=== PATIENT | female | born 1945 | race Hispanic/Latino ===

== ENCOUNTER → 2018-01-08 | Outpatient (CLI) | payer OTHER | END | disposition home or self-care (01) | LOC: OIH 10:27 | PROVIDERS: ATTEND Family Medicine | DX: M17.11 Unilateral primary osteoarthritis, right knee (principal) | CPT/HCPCS: 73562 ==

== ENCOUNTER → 2018-01-29 | Outpatient (CLI) | payer OTHER | END | disposition home or self-care (01) | LOC: RAH 08:08 | PROVIDERS: ATTEND Family Medicine | DX: R92.2 Inconclusive mammogram (principal) | CPT/HCPCS: 77066 ==

== ENCOUNTER → 2018-09-27 | Outpatient (CLI) | payer OTHER | END | disposition home or self-care (01) | LOC: RAH 12:08 | PROVIDERS: ATTEND Family Medicine | DX: K42.9 Umbilical hernia without obstruction or gangrene (principal) | CPT/HCPCS: 76705 ==

== ENCOUNTER 2019-03-16 21:29 | Emergency (ER) | payer OTHER ==
[2019-03-16] MEDS ORDERED: DIAZEPAM 5 MG TABLET ONE (22:18)
[2019-03-16 22:23] LABS: APPEARANCE,URINE Clear (CLEAR); BILIRUBIN,URINE Negative (NEGATIVE); COLOR,URINE Yellow (YELLOW); GLUCOSE, URINE (UA) Negative (NEGATIVE); KETONES,URINE Negative (NEGATIVE); LEUKOCYTE ESTERASE ,URINE Negative (NEGATIVE); NITRATE,URINE Negative (NEGATIVE); OCCULT BLOOD,URINE Negative (NEGATIVE); PROTEIN,URINE POS 2+ mg/dL (NEGATIVE)
[2019-03-16 22:27] LABS: BASOPHILS % (AUTO) 0.8 % (0.0-5.0); EOSINOPHILS % (AUTO) 0.8 % (0.0-8.0); HEMATOCRIT 34.4 % (36-48); MEAN CORPUSCULAR HEMOGLOBIN 30.8 pg (27.0-33.0); MEAN CORPUSCULAR HGB CONC 33.5 g/dL (32.0-36.0); MEAN CORPUSCULAR VOLUME 91.9 fL (79-99); MONOCYTES % (AUTO) 7.4 % (3.0-13.0); PLATELET COUNT (AUTO) 192 K/uL (130-400); RED BLOOD CELL COUNT(AUTO) 3.74 MIL/uL (4.00-5.50); RED CELL DISTRIBUTION WIDTH 13.4 % (11.0-15.5); WHITE BLOOD COUNT (AUTO) 6.9 K/uL (4.8-10.8)
[2019-03-16 22:29] LABS: CARBON DIOXIDE 29 mmol/L (21-32); CHLORIDE 101 mmol/L (101-111); CREATININE 1.3 mg/dL (0.5-1.5); GLOMERULAR FILTR. RATE CALC 42 mL/min (>60); GLUCOSE,RANDOM 207 mg/dL (70-105); POTASSIUM 4.8 mmol/L (3.5-5.1); SODIUM SERUM 137 mmol/L (136-145); UREA NITROGEN, BLOOD 34 mg/dL (7-18)
[2019-03-16 22:33] LABS: ALANINE AMINOTRANSFERASE 26 U/L (12-78); ASPARTATE AMINOTRANSFERASE 20 U/L (10-37); BILIRUBIN,DIRECT < 0.1 mg/dL (0.0-0.3); BILIRUBIN,TOTAL 0.2 mg/dL (0.2-1.0); CREATINE KINASE, TOTAL 47 U/L (21-232); LIPASE 151 U/L (114-286); TOTAL PROTEIN, SERUM 7.2 g/dL (6.0-8.3)
[2019-03-16 23:15] LABS: B-TYPE NATRIURETIC PEPTIDE 20 pg/mL (0-100)
== END 2019-03-17 00:20 | disposition home or self-care (01) ==
LOC: EDH 21:29
DX: R51 Headache (principal); I10 Essential (primary) hypertension; E11.9 Type 2 diabetes mellitus without complications; E78.5 Hyperlipidemia, unspecified; Z88.6 Allergy status to analgesic agent
CPT/HCPCS: 36415; 70450; 80048; 80076; 81003; 82550; 83690; 83880; 84484; 85025; 93005

== ENCOUNTER 2019-06-08 14:34 | Emergency (ER) | payer OTHER | END 2019-06-08 15:24 | disposition home or self-care (01) | LOC: EDH 14:34 | DX: S81.802A Unspecified open wound, left lower leg, initial encounter (principal); E11.9 Type 2 diabetes mellitus without complications; E78.5 Hyperlipidemia, unspecified; I10 Essential (primary) hypertension; Z88.6 Allergy status to analgesic agent; Z98.890 Other specified postprocedural states; Z90.49 Acquired absence of other specified parts of digestive tract; W18.39XA Other fall on same level, initial encounter; Y93.89 Activity, other specified; Y92.89 Other specified places as the place of occurrence of the external cause; Y99.8 Other external cause status ==

== ENCOUNTER 2019-08-04 00:18 | Emergency (ER) | payer OTHER ==
[2019-08-04 00:46] LABS: HEMATOCRIT 34.4 % (36-48); LYMPHOCYTES % (AUTO) 14.8 % (21.0-51.0); MEAN CORPUSCULAR HEMOGLOBIN 30.6 pg (27.0-33.0); MEAN CORPUSCULAR HGB CONC 33.7 g/dL (32.0-36.0); MEAN CORPUSCULAR VOLUME 90.9 fL (79-99); MONOCYTES % (AUTO) 7.1 % (3.0-13.0); NEUTROPHILS % (AUTO) 76.1 % (40.0-77.0); PLATELET COUNT (AUTO) 201 K/uL (130-400); RED BLOOD CELL COUNT(AUTO) 3.78 MIL/uL (4.00-5.50); RED CELL DISTRIBUTION WIDTH 12.8 % (11.0-15.5); WHITE BLOOD COUNT (AUTO) 11.4 K/uL (4.8-10.8)
[2019-08-04 00:51] LABS: CREATININE 1.1 mg/dL (0.5-1.5); POTASSIUM 4.1 mmol/L (3.5-5.1)
[2019-08-04] MEDS ORDERED: ORPHENADRINE CITRATE 30 MG/ML ML ONE (00:52)
[2019-08-04] MEDS ORDERED: KETOROLAC TROMETHAMINE 15MG/ML ONE (00:52)
[2019-08-04 00:56] LABS: ALBUMIN 3.2 g/dL (3.5-5.0); BILIRUBIN,TOTAL 0.2 mg/dL (0.2-1.0); INR 0.92 (0.85-1.15); PARTIAL THROMBOPLASTIN TIME 25.5 SEC (26.3-35.5); PROTHROMBIN TIME 9.7 SEC (9.6-11.6); TOTAL PROTEIN, SERUM 7.6 g/dL (6.0-8.3)
[2019-08-04] MEDS ORDERED: LIDOCAINE 5% TOPICAL PATCH TP ONE (01:35)
== END 2019-08-04 01:51 | disposition home or self-care (01) ==
LOC: EDH 00:18
DX: R07.89 Other chest pain (principal); M62.838 Other muscle spasm; E11.9 Type 2 diabetes mellitus without complications; E78.5 Hyperlipidemia, unspecified; I10 Essential (primary) hypertension; Z88.6 Allergy status to analgesic agent; Z98.890 Other specified postprocedural states; Z90.49 Acquired absence of other specified parts of digestive tract
CPT/HCPCS: 36415; 71045; 80053; 82550; 84484; 85025; 85610; 85730; 93005; 96374; 96375; 99285; J1885; J2360

== ENCOUNTER 2021-01-26 22:13 | Emergency (ER) | payer OTHER ==
[2021-01-26 23:07] LABS: BASOPHILS % (AUTO) 0.8 % (0.0-5.0); EOSINOPHILS % (AUTO) 0.5 % (0.0-8.0); HEMATOCRIT 36.9 % (36-48); LYMPHOCYTES % (AUTO) 16.8 % (21.0-51.0); MEAN CORPUSCULAR HGB CONC 32.5 g/dL (32.0-36.0); MEAN CORPUSCULAR VOLUME 89.1 fL (79-99); MONOCYTES % (AUTO) 5.9 % (3.0-13.0); NEUTROPHILS % (AUTO) 75.3 % (40.0-77.0); PLATELET COUNT (AUTO) 202 K/uL (130-400); RED BLOOD CELL COUNT(AUTO) 4.14 MIL/uL (4.00-5.50); RED CELL DISTRIBUTION WIDTH 13.2 % (11.0-15.5); WHITE BLOOD COUNT (AUTO) 7.4 K/uL (4.8-10.8)
[2021-01-26 23:10] LABS: CREATININE 1.6 mg/dL (0.5-1.5); POTASSIUM 4.5 mmol/L (3.5-5.1)
[2021-01-26] MEDS ORDERED: METOCLOPRAMIDE 10 MG/2 ML VIAL ONE (23:14)
[2021-01-26] MEDS ORDERED: ACETAMINOPHEN EXTRA STRENGTH 500 MG TABLET ONE (23:14)
[2021-01-26] MEDS ORDERED: DiphenhydrAMINE HCL 50 MG/ML VIAL ONE (23:14)
[2021-01-26 23:15] LABS: ALBUMIN 3.7 g/dL (3.5-5.0); BILIRUBIN,TOTAL 0.4 mg/dL (0.2-1.0); TOTAL PROTEIN, SERUM 8.5 g/dL (6.0-8.3)
[2021-01-26] MEDS ORDERED: SODIUM CHLORIDE 0.9% 500ML 500 ML IV ONE (23:15)
[2021-01-26] MEDS ORDERED: ONDANSETRON HCL 4 MG/2 ML VIAL ONE (23:28)
[2021-01-27] MEDS ORDERED: SODIUM CHLORIDE 0.9% 1000ML 1,000 ML IV ONE (00:40)
[2021-01-27 01:17] LABS: APPEARANCE,URINE Clear (CLEAR); BILIRUBIN,URINE Negative (NEGATIVE); COLOR,URINE Yellow (YELLOW); GLUCOSE, URINE (UA) 250 mg/dL (NEGATIVE); KETONES,URINE Negative (NEGATIVE); LEUKOCYTE ESTERASE ,URINE Trace (NEGATIVE); NITRATE,URINE Negative (NEGATIVE); OCCULT BLOOD,URINE Negative (NEGATIVE); PROTEIN,URINE POS 2+ mg/dL (NEGATIVE); UROBILINOGEN,URINE 0.2 mg/dL (0.2-1.0)
[2021-01-27 01:26] LABS: BACTERIA,URINE Many /HPF (None Seen); RBC,URINE 0-1 /HPF (0-1)
[2021-01-27] MEDS ORDERED: CEFTRIAXONE SODIUM 1 GM ONE (01:51)
== END 2021-01-27 02:55 | disposition home or self-care (01) ==
LOC: EDH 22:13
DX: N39.0 Urinary tract infection, site not specified (principal); E86.0 Dehydration; L73.9 Follicular disorder, unspecified; R11.10 Vomiting, unspecified; I10 Essential (primary) hypertension; E11.9 Type 2 diabetes mellitus without complications; E78.5 Hyperlipidemia, unspecified; Z88.6 Allergy status to analgesic agent; Z90.49 Acquired absence of other specified parts of digestive tract; Z98.890 Other specified postprocedural states
CPT/HCPCS: 36415; 70450; 71045; 80053; 81001; 83880; 84484; 85025; 87077; 87088; 87186; 93005; 96361; 96365; 96375; 99285; J0696; J1200; J2405; J2765; J7030; J7040

== ENCOUNTER 2023-07-10 00:33 | Inpatient (IN) | payer OTHER ==
[~2023-07-10] VITALS: Ht 152.4 cm; Wt 76.8 kg
[2023-07-10] VITALS (26 sets, daily range): BP systolic 114–148; BP diastolic 52–80; PULSE 82–99; RESP 12–23; O2SAT 93–99
[~2023-07-10 00:33] MED LIST: AEC81 PO; CLOP-31 PO; ESCI-8 PO; FERR325T29 PO; FOLI1TAB85 PO; LOSA100T59 PO; METO100T14 PO; MUPI22O TP; ROSU40TA21 PO; SULF1TAB42 PO; TRAM50TA4 PO
[2023-07-10 01:26] LABS: SARS-CoV-2, RNA, NAAT NEGATIVE SARS CoV-2 (NEGATIVE)
[2023-07-10 01:32] LABS: INFLUENZA TYPE A Negative For Type A (NEGATIVE); INFLUENZA TYPE B Negative For Type B (NEGATIVE)
[2023-07-10 02:03] LABS: BASOPHILS # (AUTO) 0.05 K/uL (0.00-0.20); BASOPHILS % (AUTO) 0.6 % (0.0-5.0); EOSINOPHILS # (AUTO) 0.13 K/uL (0.00-0.70); EOSINOPHILS % (AUTO) 1.6 % (0.0-8.0); HEMATOCRIT 35.1 % (36-48); IMMATURE GRANULOCYTE ABSOLUTE 0.03 K/uL (0-1); LYMPHOCYTES # (AUTO) 1.2 K/uL (1.0-4.8); LYMPHOCYTES % (AUTO) 15.3 % (21.0-51.0); MEAN CORPUSCULAR VOLUME 90.7 fL (79-99); MONOCYTES # (AUTO) 0.7 K/uL (0.1-1.0); MONOCYTES % (AUTO) 8.7 % (3.0-13.0); NEUTROPHILS # (AUTO) 5.8 K/uL (1.8-7.7); NEUTROPHILS % (AUTO) 73.4 % (40.0-77.0); PLATELET COUNT (AUTO) 161 K/uL (130-400); RED BLOOD CELL COUNT(AUTO) 3.87 MIL/uL (4.00-5.50); RED CELL DISTRIBUTION WIDTH 13.4 % (11.0-15.5); WHITE BLOOD COUNT (AUTO) 7.9 K/uL (4.8-10.8)
[2023-07-10 02:26] LABS: ALBUMIN 2.9 g/dL (3.5-5.0); BILIRUBIN,TOTAL 0.5 mg/dL (0.2-1.0); CREATININE 1.8 mg/dL (0.5-1.5); POTASSIUM 4.5 mmol/L (3.5-5.1); TOTAL PROTEIN, SERUM 8.1 g/dL (6.0-8.3)
[2023-07-10] MEDS ORDERED: IPRATROPIUM/ALBUTEROL SULFATE 3 ML SOLUTION IH ONE ×2 (02:30→03:30)
[2023-07-10] MEDS ORDERED: 0.9%NACL 1000ML 1,000 ML IV ONE (03:00)
[2023-07-10] MEDS ORDERED: INSULIN HUMULIN R 100 UNIT/ML 3ML IV ONE (03:00)
[2023-07-10] MEDS ORDERED: IPRATROPIUM/ALBUTEROL SULFATE 3 ML SOLUTION IH STA (03:29)
[2023-07-10] MEDS ORDERED: ACETAMINOPHEN 650 MG/20.3 ML UDCUP PEG STA (03:29)
[2023-07-10] MEDS ORDERED: AZITHROMYCIN 500MG+NS 250ML 250 ML IVPB SCH ×2 (05:00→05:30)
[2023-07-10] MEDS ORDERED: CEFTRIAXONE 1G VIAL IVPB ONE (05:00)
[2023-07-10] MEDS: CLINDAMYCIN IVPB 900MG/50ML 50 ML IV SCH ×3 (05:08→20:46)
[2023-07-10] MEDS ORDERED: CEFTRIAXONE 1G VIAL IVPB SCH (05:30)
[2023-07-10] MEDS ORDERED: ONDANSETRON 4MG INJ IV PRN (05:30)
[2023-07-10] MEDS ORDERED: DEXTROSE 50%-WATER 50 ML DISP.SYRIN IV PRN ×2 (06:00→09:30)
[2023-07-10] MEDS ORDERED: GLUCAGON 1MG KIT 1 MG ML IM PRN ×2 (06:00→09:30)
[2023-07-10] MEDS ORDERED: POTASSIUM CHLORIDE 20MEQ/100ML 100 ML IV PRN (06:00)
[2023-07-10] MEDS: IPRATROPIUM/ALBUTEROL SULFATE 3 ML SOLUTION IH SCH ×5 (06:57→22:18)
[2023-07-10] MEDS: INSULIN HUMULIN R 100 UNIT/ML 3ML SQ SCH ×2 (07:25→11:30)
[2023-07-10 08:11] LABS: INR 0.94 (0.85-1.15); PROTHROMBIN TIME 10.9 SEC (9.6-11.6)
[2023-07-10 08:22] LABS: HEMOGLOBIN A1C 11.2 % (4.0-6.0)
[2023-07-10 08:34] LABS: ALBUMIN 2.3 g/dL (3.5-5.0); BILIRUBIN,TOTAL 0.4 mg/dL (0.2-1.0); CREATININE 1.8 mg/dL (0.5-1.5); THYROID STIMULATING HORMONE 1.85 uIU/mL (0.36-3.74); TOTAL PROTEIN, SERUM 6.9 g/dL (6.0-8.3)
[2023-07-10] MEDS: AZITHROMYCIN 500MG+NS 250ML 250 ML IVPB SCH (09:18)
[2023-07-10] MEDS: FAMOTIDINE 20MG VIAL IV SCH (09:18)
[2023-07-10] MEDS ORDERED: INSULIN REGULAR, HUMAN 3ML 100 UNIT in 0.9%NACL 100ML 99 ML IV STA ×2 (10:08)
[2023-07-10] MEDS: HEPARIN 5,000 UNIT VIAL SQ SCH ×2 (11:44→17:19)
[2023-07-10] MEDS: 0.9%NACL 1000ML 1,000 ML IV SCH ×2 (14:48→23:19)
[2023-07-10 16:14] LABS: CREATININE 1.9 mg/dL (0.5-1.5)
[2023-07-10 21:20] LABS: CREATININE 1.4 mg/dL (0.5-1.5); POTASSIUM 3.7 mmol/L (3.5-5.1)
[2023-07-11] VITALS (22 sets, daily range): BP systolic 116–146; BP diastolic 51–70; PULSE 81–98; RESP 14–21; O2SAT 94–100
[2023-07-11] MEDS: HEPARIN 5,000 UNIT VIAL SQ SCH ×3 (01:37→17:14)
[2023-07-11] MEDS: IPRATROPIUM/ALBUTEROL SULFATE 3 ML SOLUTION IH SCH ×6 (01:52→22:33)
[2023-07-11 04:14] LABS: BASOPHILS # (AUTO) 0.03 K/uL (0.00-0.20); BASOPHILS % (AUTO) 0.6 % (0.0-5.0); EOSINOPHILS # (AUTO) 0.13 K/uL (0.00-0.70); EOSINOPHILS % (AUTO) 2.8 % (0.0-8.0); IMMATURE GRANULOCYTE ABSOLUTE 0.03 K/uL (0-1); LYMPHOCYTES # (AUTO) 1.1 K/uL (1.0-4.8); LYMPHOCYTES % (AUTO) 24.1 % (21.0-51.0); MEAN CORPUSCULAR HEMOGLOBIN 29.9 pg (27.0-33.0); MEAN CORPUSCULAR HGB CONC 32.1 g/dL (32.0-36.0); MEAN CORPUSCULAR VOLUME 93.2 fL (79-99); MONOCYTES # (AUTO) 0.4 K/uL (0.1-1.0); MONOCYTES % (AUTO) 8.7 % (3.0-13.0); NEUTROPHILS % (AUTO) 63.2 % (40.0-77.0); PLATELET COUNT (AUTO) 145 K/uL (130-400); RED BLOOD CELL COUNT(AUTO) 3.11 MIL/uL (4.00-5.50); RED CELL DISTRIBUTION WIDTH 13.5 % (11.0-15.5); WHITE BLOOD COUNT (AUTO) 4.7 K/uL (4.8-10.8)
[2023-07-11 04:31] LABS: ALBUMIN 2.3 g/dL (3.5-5.0); BILIRUBIN,TOTAL 0.2 mg/dL (0.2-1.0); CREATININE 1.4 mg/dL (0.5-1.5); MAGNESIUM 1.5 mg/dL (1.80-2.40); POTASSIUM 3.4 mmol/L (3.5-5.1); TOTAL PROTEIN, SERUM 6.9 g/dL (6.0-8.3)
[2023-07-11 04:43] LABS: ABG BASE EXCESS -1.8 mmol/L (-2.0-3.0); ABG OXYGEN SATURATION 88.9 % (95.0-99.0); ABG PCO2 45 mmHg (32-45); ABG PH 7.348 (7.35-7.450); PO2, ARTERIAL BG 58.3 mmHg (83.0-108.0); VENT MODE, BG ROOM AIR (ROOM AIR)
[2023-07-11] MEDS: CLINDAMYCIN IVPB 900MG/50ML 50 ML IV SCH (05:00)
[2023-07-11] MEDS ORDERED: CEFTRIAXONE 1G VIAL IVPB SCH (05:30)
[2023-07-11] MEDS: 0.9%NACL 1000ML 1,000 ML IV SCH ×2 (06:23→19:58)
[2023-07-11] MEDS: MAGNESIUM 2GM PREMIX 50ML 50 ML IV PRN (08:08)
[2023-07-11] MEDS: AZITHROMYCIN 500MG+NS 250ML 250 ML IVPB SCH (08:08)
[2023-07-11] MEDS: FAMOTIDINE 20MG VIAL IV SCH (08:08)
[2023-07-11] MEDS ORDERED: KCL 20 MEQ ERTAB PO PRN (08:30)
[2023-07-11] MEDS ORDERED: GLUCAGON 1MG KIT 1 MG ML IM PRN (08:30)
[2023-07-11] MEDS ORDERED: POTASSIUM CHLORIDE 20MEQ/100ML 100 ML IV PRN (08:30)
[2023-07-11] MEDS ORDERED: TRAMADOL HCL 50 MG TABLET PO SCH (08:30)
[2023-07-11] MEDS ORDERED: INSULIN NPH 100 UNIT/ML 3ML SQ SCH (08:30)
[2023-07-11] MEDS ORDERED: DEXTROSE 50%-WATER 50 ML DISP.SYRIN IV PRN (08:30)
[2023-07-11] MEDS: METOPROLOL TARTRATE 50 MG TAB PO SCH ×2 (08:41→21:42)
[2023-07-11] MEDS: CEFTRIAXONE 2GM VIAL IVPB SCH (08:41)
[2023-07-11] MEDS: POTASSIUM CHLORIDE 10% ELIXIR 20 MEQ/15 ML UDCUP PO PRN (08:41)
[2023-07-11] MEDS: CLOPIDOGREL 75MG TAB PO SCH (08:41)
[2023-07-11] MEDS: LOSARTAN 100 MG TABLET PO SCH (08:41)
[2023-07-11] MEDS: ASPIRIN 81 MG EC TAB PO SCH (08:41)
[2023-07-11] MEDS: FAMOTIDINE 20MG TAB PO SCH (08:41)
[2023-07-11] MEDS ORDERED: POLYETHYLENE GLYCOL 3350 17 GM POWD.PACK ONE (08:57)
[2023-07-11] MEDS: Rosuvastatin Calcium 40 MG PO SCH (09:00)
[2023-07-11] MEDS ORDERED: NON-FORMULARY MEDICATION 1 EACH (Vit B Cmplx 3/FA/Vit C/Biotin (Rena-Vite Rx Tablet) 1 EAC PO SCH (09:00)
[2023-07-11] MEDS ORDERED: DOCUSATE NA 100MG/10ML UDCUP PO SCH (09:00)
[2023-07-11] MEDS: Escitalopram Oxalate 20 MG PO SCH (09:00)
[2023-07-11] MEDS ORDERED: POLYETHYLENE GLYCOL 3350 17 GM POWD.PACK PO SCH (09:00)
[2023-07-11] MEDS ORDERED: FERROUS SULFATE PO SCH (09:00)
[2023-07-11] MEDS ORDERED: TRAMADOL HCL 50 MG TABLET PO PRN (09:00)
[2023-07-11] MEDS: FERROUS SULFATE 325 MG TABLET.DR PO SCH (09:04)
[2023-07-11] MEDS: Vitamin B Complex/Vit C/Folic Acid PO SCH (09:04)
[2023-07-11] MEDS: POLYETHYLENE GLYCOL 3350 17 GM POWD.PACK PO SCH (09:46)
[2023-07-11] MEDS: DOCUSATE NA 100MG/10ML UDCUP PO SCH ×2 (10:13→18:34)
[2023-07-11] MEDS: INSULIN NPH 100 UNIT/ML 3ML SQ SCH ×2 (10:14→16:30)
[2023-07-11] MEDS ORDERED: INSULIN HUMULIN R 100 UNIT/ML 3ML ONE (11:51)
[2023-07-11] MEDS: INSULIN HUMULIN R 100 UNIT/ML 3ML SQ SCH ×2 (12:00→18:00)
[2023-07-11] MEDS ORDERED: INSULIN HUMULIN R 100 UNIT/ML 3ML SQ SCH (12:00)
[2023-07-11] MEDS: MUPIROCIN OINTMENT 22 GM TUBE TP SCH (12:38)
[2023-07-11] MEDS: METRONIDAZOLE 500 MG TABLET PO SCH (17:09)
[2023-07-11] MEDS: BENZONATATE 100 MG CAPSULE PO PRN (18:34)
[2023-07-12] VITALS (16 sets, daily range): BP systolic 137–157; BP diastolic 58–77; PULSE 71–101; RESP 16–24; O2SAT 95–100
[2023-07-12] MEDS: METRONIDAZOLE 500 MG TABLET PO SCH ×3 (01:00→17:00)
[2023-07-12] MEDS: HEPARIN 5,000 UNIT VIAL SQ SCH ×3 (01:19→17:30)
[2023-07-12] MEDS: IPRATROPIUM/ALBUTEROL SULFATE 3 ML SOLUTION IH SCH ×6 (01:40→21:52)
[2023-07-12] MEDS: INSULIN HUMULIN R 100 UNIT/ML 3ML SQ SCH ×4 (06:00→16:20)
[2023-07-12 06:04] LABS: BASOPHILS # (AUTO) 0.04 K/uL (0.00-0.20); BASOPHILS % (AUTO) 0.7 % (0.0-5.0); EOSINOPHILS # (AUTO) 0.17 K/uL (0.00-0.70); HEMATOCRIT 28.1 % (36-48); IMMATURE GRANULOCYTE ABSOLUTE 0.03 K/uL (0-1); LYMPHOCYTES # (AUTO) 1.3 K/uL (1.0-4.8); LYMPHOCYTES % (AUTO) 22.3 % (21.0-51.0); MEAN CORPUSCULAR HEMOGLOBIN 29.6 pg (27.0-33.0); MEAN CORPUSCULAR HGB CONC 32.4 g/dL (32.0-36.0); MEAN CORPUSCULAR VOLUME 91.5 fL (79-99); MONOCYTES # (AUTO) 0.7 K/uL (0.1-1.0); MONOCYTES % (AUTO) 11.8 % (3.0-13.0); NEUTROPHILS # (AUTO) 3.5 K/uL (1.8-7.7); NEUTROPHILS % (AUTO) 61.7 % (40.0-77.0); PLATELET COUNT (AUTO) 165 K/uL (130-400); RED BLOOD CELL COUNT(AUTO) 3.07 MIL/uL (4.00-5.50); RED CELL DISTRIBUTION WIDTH 13.7 % (11.0-15.5); WHITE BLOOD COUNT (AUTO) 5.7 K/uL (4.8-10.8)
[2023-07-12 06:09] LABS: CREATININE 1.2 mg/dL (0.5-1.5); MAGNESIUM 1.8 mg/dL (1.80-2.40)
[2023-07-12] MEDS: INSULIN NPH 100 UNIT/ML 3ML SQ SCH ×2 (06:41→18:43)
[2023-07-12] MEDS ORDERED: LABETALOL 20MG SYG IV PRN (08:30)
[2023-07-12] MEDS: Rosuvastatin Calcium 40 MG PO SCH (09:00)
[2023-07-12] MEDS: Escitalopram Oxalate 20 MG PO SCH (09:00)
[2023-07-12] MEDS: AZITHROMYCIN 500MG+NS 250ML 250 ML IVPB SCH (10:42)
[2023-07-12] MEDS: CEFTRIAXONE 2GM VIAL IVPB SCH (10:42)
[2023-07-12] MEDS: Vitamin B Complex/Vit C/Folic Acid PO SCH (15:44)
[2023-07-12] MEDS: CLOPIDOGREL 75MG TAB PO SCH (15:44)
[2023-07-12] MEDS: METOPROLOL TARTRATE 50 MG TAB PO SCH ×2 (15:44→20:15)
[2023-07-12] MEDS: DOCUSATE NA 100MG/10ML UDCUP PO SCH ×2 (15:45→20:15)
[2023-07-12] MEDS: FERROUS SULFATE 325 MG TABLET.DR PO SCH (15:45)
[2023-07-12] MEDS: LOSARTAN 100 MG TABLET PO SCH (15:45)
[2023-07-12] MEDS: POLYETHYLENE GLYCOL 3350 17 GM POWD.PACK PO SCH (15:45)
[2023-07-12] MEDS: FAMOTIDINE 20MG TAB PO SCH (15:45)
[2023-07-12] MEDS: ASPIRIN 81 MG EC TAB PO SCH (15:45)
[2023-07-12] MEDS: GUAIFENESIN-DM 200/20 MG 10 ML PO PRN (20:15)
[2023-07-12] MEDS: BALSAM PERU/CASTOR OIL 60 GM TUBE TP SCH (20:25)
[2023-07-12 22:08] LABS: MYCOPLASMA AB IGM <770 U/mL (0-769)
[2023-07-12] MEDS: 0.9%NACL 1000ML 1,000 ML IV SCH (22:38)
[2023-07-13] VITALS (16 sets, daily range): BP systolic 146–161; BP diastolic 71–82; PULSE 75–103; RESP 17–22; O2SAT 93–98
[2023-07-13] MEDS: INSULIN HUMULIN R 100 UNIT/ML 3ML SQ SCH ×5 (00:05→23:57)
[2023-07-13] MEDS: METRONIDAZOLE 500 MG TABLET PO SCH ×3 (00:32→17:25)
[2023-07-13] MEDS: HEPARIN 5,000 UNIT VIAL SQ SCH ×3 (00:34→17:31)
[2023-07-13] MEDS: IPRATROPIUM/ALBUTEROL SULFATE 3 ML SOLUTION IH SCH ×6 (01:05→20:59)
[2023-07-13] MEDS: GUAIFENESIN-DM 200/20 MG 10 ML PO PRN (01:35)
[2023-07-13] MEDS: INSULIN NPH 100 UNIT/ML 3ML SQ SCH ×2 (06:42→17:27)
[2023-07-13] MEDS: ACETAMINOPHEN 325 MG TAB PO PRN (07:50)
[2023-07-13] MEDS: Escitalopram Oxalate 20 MG PO SCH (09:00)
[2023-07-13] MEDS: Rosuvastatin Calcium 40 MG PO SCH (09:00)
[2023-07-13] MEDS: DOCUSATE NA 100MG/10ML UDCUP PO SCH ×2 (10:27→21:00)
[2023-07-13] MEDS: AZITHROMYCIN 500MG+NS 250ML 250 ML IVPB SCH (10:27)
[2023-07-13] MEDS: POLYETHYLENE GLYCOL 3350 17 GM POWD.PACK PO SCH (10:27)
[2023-07-13] MEDS: LOSARTAN 100 MG TABLET PO SCH (10:28)
[2023-07-13] MEDS: FERROUS SULFATE 325 MG TABLET.DR PO SCH (10:28)
[2023-07-13] MEDS: CLOPIDOGREL 75MG TAB PO SCH (10:28)
[2023-07-13] MEDS: ASPIRIN 81 MG EC TAB PO SCH (10:28)
[2023-07-13] MEDS: FAMOTIDINE 20MG TAB PO SCH (10:28)
[2023-07-13] MEDS: METOPROLOL TARTRATE 50 MG TAB PO SCH ×2 (10:28→21:00)
[2023-07-13] MEDS: Vitamin B Complex/Vit C/Folic Acid PO SCH (10:28)
[2023-07-13] MEDS: BALSAM PERU/CASTOR OIL 60 GM TUBE TP SCH ×2 (10:35→22:18)
[2023-07-13] MEDS: MUPIROCIN OINTMENT 22 GM TUBE TP SCH (10:36)
[2023-07-13] MEDS: CEFTRIAXONE 2GM VIAL IVPB SCH (10:42)
[2023-07-13] MEDS ORDERED: DIATR MEGLU/DIATRIZOATE SODIUM 30 ML BOTTLE ONE ×2 (11:29→18:43)
[2023-07-13] MEDS: 0.9%NACL 1000ML 1,000 ML IV SCH (11:58)
[2023-07-13] MEDS ORDERED: IOHEXOL-350 50ML VIAL IV ONE (16:18)
[2023-07-13] MEDS: MAGNESIUM 2GM PREMIX 50ML 50 ML IV PRN (22:17)
[2023-07-14] VITALS (15 sets, daily range): BP systolic 138–162; BP diastolic 63–75; PULSE 77–99; RESP 16–20; O2SAT 92–97
[2023-07-14] MEDS ORDERED: HYDROMORPHONE 0.5 MG SYG (0.5MG/0.5ML) IVP ONE
[2023-07-14] MEDS: HEPARIN 5,000 UNIT VIAL SQ SCH ×3 (00:35→19:42)
[2023-07-14] MEDS: METRONIDAZOLE 500 MG TABLET PO SCH ×3 (00:39→19:42)
[2023-07-14] MEDS: IPRATROPIUM/ALBUTEROL SULFATE 3 ML SOLUTION IH SCH ×6 (01:00→22:51)
[2023-07-14] MEDS: INSULIN HUMULIN R 100 UNIT/ML 3ML SQ SCH ×3 (06:00→18:00)
[2023-07-14] MEDS: INSULIN NPH 100 UNIT/ML 3ML SQ SCH ×2 (07:30→19:40)
[2023-07-14] MEDS: Rosuvastatin Calcium 40 MG PO SCH (09:00)
[2023-07-14] MEDS: Escitalopram Oxalate 20 MG PO SCH (09:00)
[2023-07-14] MEDS: 0.9%NACL 1000ML 1,000 ML IV SCH ×2 (10:10→14:38)
[2023-07-14] MEDS: CEFTRIAXONE 2GM VIAL IVPB SCH (10:10)
[2023-07-14] MEDS: AZITHROMYCIN 500MG+NS 250ML 250 ML IVPB SCH (10:10)
[2023-07-14 10:20] LABS: CREATININE 1.1 mg/dL (0.5-1.5); POTASSIUM 3.9 mmol/L (3.5-5.1)
[2023-07-14] MEDS: Vitamin B Complex/Vit C/Folic Acid PO SCH (10:47)
[2023-07-14] MEDS: FAMOTIDINE 20MG TAB PO SCH (10:48)
[2023-07-14] MEDS: BENZONATATE 100 MG CAPSULE PO PRN (10:48)
[2023-07-14] MEDS: FERROUS SULFATE 325 MG TABLET.DR PO SCH (10:48)
[2023-07-14] MEDS: CLOPIDOGREL 75MG TAB PO SCH (10:48)
[2023-07-14] MEDS: LOSARTAN 100 MG TABLET PO SCH ×2 (10:48→20:28)
[2023-07-14] MEDS: ASPIRIN 81 MG EC TAB PO SCH (10:48)
[2023-07-14] MEDS: METOPROLOL TARTRATE 50 MG TAB PO SCH ×2 (10:48→20:09)
[2023-07-14] MEDS: DOCUSATE NA 100MG/10ML UDCUP PO SCH ×2 (10:49→20:28)
[2023-07-14] MEDS: POLYETHYLENE GLYCOL 3350 17 GM POWD.PACK PO SCH (10:49)
[2023-07-14] MEDS: GUAIFENESIN-DM 200/20 MG 10 ML PO PRN (10:49)
[2023-07-14] MEDS: MUPIROCIN OINTMENT 22 GM TUBE TP SCH (10:50)
[2023-07-14] MEDS: BALSAM PERU/CASTOR OIL 60 GM TUBE TP SCH ×2 (10:50→20:28)
[2023-07-14] MEDS: AMLODIPINE 5 MG TAB PO SCH (10:54)
[2023-07-14] MEDS: ACETAMINOPHEN 325 MG TAB PO PRN ×2 (15:09→20:10)
[2023-07-15] VITALS (14 sets, daily range): BP systolic 142–156; BP diastolic 65–79; PULSE 76–98; RESP 16–18; O2SAT 92–96
[2023-07-15] MEDS: INSULIN HUMULIN R 100 UNIT/ML 3ML SQ SCH ×5 (01:00→23:53)
[2023-07-15] MEDS: HEPARIN 5,000 UNIT VIAL SQ SCH ×3 (01:01→17:28)
[2023-07-15] MEDS: METRONIDAZOLE 500 MG TABLET PO SCH ×3 (01:14→16:41)
[2023-07-15] MEDS: GUAIFENESIN-DM 200/20 MG 10 ML PO PRN ×3 (02:34→19:58)
[2023-07-15] MEDS: 0.9%NACL 1000ML 1,000 ML IV SCH ×2 (02:35→17:29)
[2023-07-15] MEDS: IPRATROPIUM/ALBUTEROL SULFATE 3 ML SOLUTION IH SCH ×6 (02:42→22:34)
[2023-07-15] MEDS: ACETAMINOPHEN 325 MG TAB PO PRN ×3 (02:42→19:59)
[2023-07-15] MEDS: INSULIN NPH 100 UNIT/ML 3ML SQ SCH ×2 (06:04→16:42)
[2023-07-15] MEDS: DOCUSATE NA 100MG/10ML UDCUP PO SCH ×2 (07:50→19:56)
[2023-07-15] MEDS: Escitalopram Oxalate 20 MG PO SCH (07:51)
[2023-07-15] MEDS: Rosuvastatin Calcium 40 MG PO SCH (07:52)
[2023-07-15] MEDS: POLYETHYLENE GLYCOL 3350 17 GM POWD.PACK PO SCH (07:52)
[2023-07-15] MEDS: FERROUS SULFATE 325 MG TABLET.DR PO SCH (09:24)
[2023-07-15] MEDS: AMLODIPINE 5 MG TAB PO SCH (09:24)
[2023-07-15] MEDS: AZITHROMYCIN 500MG+NS 250ML 250 ML IVPB SCH (09:24)
[2023-07-15] MEDS: CEFTRIAXONE 2GM VIAL IVPB SCH (09:24)
[2023-07-15] MEDS: LOSARTAN 100 MG TABLET PO SCH ×2 (09:25→19:56)
[2023-07-15] MEDS: ASPIRIN 81 MG EC TAB PO SCH (09:25)
[2023-07-15] MEDS: Vitamin B Complex/Vit C/Folic Acid PO SCH (09:25)
[2023-07-15] MEDS: CLOPIDOGREL 75MG TAB PO SCH (09:25)
[2023-07-15] MEDS: METOPROLOL TARTRATE 50 MG TAB PO SCH ×2 (09:25→19:55)
[2023-07-15] MEDS: FAMOTIDINE 20MG TAB PO SCH (09:26)
[2023-07-15] MEDS: BALSAM PERU/CASTOR OIL 60 GM TUBE TP SCH ×2 (09:26→19:56)
[2023-07-15] MEDS: MUPIROCIN OINTMENT 22 GM TUBE TP SCH (09:26)
[2023-07-16] VITALS (16 sets, daily range): BP systolic 105–153; BP diastolic 53–71; PULSE 68–96; RESP 14–20; O2SAT 93–95
[2023-07-16] MEDS: METRONIDAZOLE 500 MG TABLET PO SCH ×4 (00:21→23:50)
[2023-07-16] MEDS: HEPARIN 5,000 UNIT VIAL SQ SCH ×4 (00:22→23:52)
[2023-07-16] MEDS: IPRATROPIUM/ALBUTEROL SULFATE 3 ML SOLUTION IH SCH ×6 (01:59→21:48)
[2023-07-16] MEDS: GUAIFENESIN-DM 200/20 MG 10 ML PO PRN ×4 (03:24→23:49)
[2023-07-16] MEDS: INSULIN NPH 100 UNIT/ML 3ML SQ SCH ×2 (06:23→16:30)
[2023-07-16] MEDS: 0.9%NACL 1000ML 1,000 ML IV SCH ×2 (06:24→21:37)
[2023-07-16] MEDS: INSULIN HUMULIN R 100 UNIT/ML 3ML SQ SCH ×4 (06:24→23:48)
[2023-07-16] MEDS: Rosuvastatin Calcium 40 MG PO SCH (09:00)
[2023-07-16] MEDS: POLYETHYLENE GLYCOL 3350 17 GM POWD.PACK PO SCH (09:00)
[2023-07-16] MEDS: Escitalopram Oxalate 20 MG PO SCH (09:00)
[2023-07-16] MEDS: DOCUSATE NA 100MG/10ML UDCUP PO SCH ×2 (09:00→21:37)
[2023-07-16] MEDS: METOPROLOL TARTRATE 50 MG TAB PO SCH ×2 (09:43→21:37)
[2023-07-16] MEDS: CEFTRIAXONE 2GM VIAL IVPB SCH (09:43)
[2023-07-16] MEDS: LOSARTAN 100 MG TABLET PO SCH ×2 (09:44→21:37)
[2023-07-16] MEDS: ASPIRIN 81 MG EC TAB PO SCH (09:44)
[2023-07-16] MEDS: AMLODIPINE 5 MG TAB PO SCH (09:44)
[2023-07-16] MEDS: FAMOTIDINE 20MG TAB PO SCH (09:45)
[2023-07-16] MEDS: CLOPIDOGREL 75MG TAB PO SCH (09:45)
[2023-07-16] MEDS: FERROUS SULFATE 325 MG TABLET.DR PO SCH (09:45)
[2023-07-16] MEDS: Vitamin B Complex/Vit C/Folic Acid PO SCH (09:45)
[2023-07-16] MEDS: BALSAM PERU/CASTOR OIL 60 GM TUBE TP SCH ×2 (09:46→21:37)
[2023-07-16] MEDS: MUPIROCIN OINTMENT 22 GM TUBE TP SCH (09:46)
[2023-07-16] MEDS: AZITHROMYCIN 500MG+NS 250ML 250 ML IVPB SCH (11:15)
[2023-07-16] MEDS: ACETAMINOPHEN 325 MG TAB PO PRN ×2 (12:08→23:50)
[2023-07-16] MEDS ORDERED: BENZ-226 PO (13:31)
[2023-07-16] MEDS ORDERED: AMLO5TAB4 PO (13:31)
[2023-07-16] MEDS ORDERED: BENZ-39 PO (13:36)
[2023-07-16] MEDS ORDERED: LEVO750T39 PO (13:36)
[2023-07-17] VITALS (15 sets, daily range): BP systolic 114–140; BP diastolic 51–90; PULSE 72–83; RESP 18–20; TEMP 98.2; O2SAT 91–95
[2023-07-17] MEDS: IPRATROPIUM/ALBUTEROL SULFATE 3 ML SOLUTION IH SCH ×5 (01:25→18:38)
[2023-07-17] MEDS: GUAIFENESIN-DM 200/20 MG 10 ML PO PRN ×4 (05:52→20:17)
[2023-07-17] MEDS: INSULIN HUMULIN R 100 UNIT/ML 3ML SQ SCH ×4 (06:00→20:19)
[2023-07-17] MEDS: INSULIN NPH 100 UNIT/ML 3ML SQ SCH ×2 (06:13→15:41)
[2023-07-17] MEDS: ACETAMINOPHEN 325 MG TAB PO PRN ×3 (06:18→20:18)
[2023-07-17] MEDS: DOCUSATE NA 100MG/10ML UDCUP PO SCH ×2 (09:00→20:17)
[2023-07-17] MEDS: POLYETHYLENE GLYCOL 3350 17 GM POWD.PACK PO SCH (09:00)
[2023-07-17] MEDS: Rosuvastatin Calcium 40 MG PO SCH (09:00)
[2023-07-17] MEDS: Escitalopram Oxalate 20 MG PO SCH (09:00)
[2023-07-17] MEDS: CLOPIDOGREL 75MG TAB PO SCH (09:57)
[2023-07-17] MEDS: FAMOTIDINE 20MG TAB PO SCH (09:57)
[2023-07-17] MEDS: AMLODIPINE 5 MG TAB PO SCH (09:57)
[2023-07-17] MEDS: ASPIRIN 81 MG EC TAB PO SCH (09:57)
[2023-07-17] MEDS: METRONIDAZOLE 500 MG TABLET PO SCH ×2 (09:57→17:02)
[2023-07-17] MEDS: CEFTRIAXONE 2GM VIAL IVPB SCH (09:57)
[2023-07-17] MEDS: METOPROLOL TARTRATE 50 MG TAB PO SCH ×2 (09:57→20:17)
[2023-07-17] MEDS: LOSARTAN 100 MG TABLET PO SCH ×2 (09:57→20:17)
[2023-07-17] MEDS: FERROUS SULFATE 325 MG TABLET.DR PO SCH (09:57)
[2023-07-17] MEDS: Vitamin B Complex/Vit C/Folic Acid PO SCH (09:58)
[2023-07-17] MEDS: BALSAM PERU/CASTOR OIL 60 GM TUBE TP SCH ×2 (09:59→20:19)
[2023-07-17] MEDS: MUPIROCIN OINTMENT 22 GM TUBE TP SCH (10:00)
[2023-07-17] MEDS: HEPARIN 5,000 UNIT VIAL SQ SCH ×2 (10:04→17:11)
[2023-07-17] MEDS: AZITHROMYCIN 500MG+NS 250ML 250 ML IVPB SCH (12:08)
[2023-07-17] MEDS ORDERED: PHARMACY COMMUNICATION MISC SCH (18:30)
[2023-07-18] VITALS (10 sets, daily range): BP systolic 132–149; BP diastolic 60–75; PULSE 72–88; RESP 17–20; O2SAT 90–96
[2023-07-18] MEDS: METRONIDAZOLE 500 MG TABLET PO SCH ×2 (00:06→10:47)
[2023-07-18] MEDS: GUAIFENESIN-DM 200/20 MG 10 ML PO PRN (00:06)
[2023-07-18] MEDS: HEPARIN 5,000 UNIT VIAL SQ SCH ×2 (00:07→10:43)
[2023-07-18] MEDS: IPRATROPIUM/ALBUTEROL SULFATE 3 ML SOLUTION IH SCH ×4 (01:08→14:44)
[2023-07-18 04:46] LABS: BASOPHILS # (AUTO) 0.06 K/uL (0.00-0.20); EOSINOPHILS # (AUTO) 0.26 K/uL (0.00-0.70); EOSINOPHILS % (AUTO) 4.2 % (0.0-8.0); HEMATOCRIT 31.4 % (36-48); IMMATURE GRANULOCYTE ABSOLUTE 0.11 K/uL (0-1); LYMPHOCYTES # (AUTO) 1.7 K/uL (1.0-4.8); LYMPHOCYTES % (AUTO) 27.9 % (21.0-51.0); MEAN CORPUSCULAR HEMOGLOBIN 29.8 pg (27.0-33.0); MEAN CORPUSCULAR HGB CONC 31.8 g/dL (32.0-36.0); MEAN CORPUSCULAR VOLUME 93.5 fL (79-99); MONOCYTES # (AUTO) 0.5 K/uL (0.1-1.0); MONOCYTES % (AUTO) 8.2 % (3.0-13.0); NEUTROPHILS # (AUTO) 3.5 K/uL (1.8-7.7); NEUTROPHILS % (AUTO) 56.9 % (40.0-77.0); PLATELET COUNT (AUTO) 242 K/uL (130-400); RED BLOOD CELL COUNT(AUTO) 3.36 MIL/uL (4.00-5.50); RED CELL DISTRIBUTION WIDTH 14.3 % (11.0-15.5); WHITE BLOOD COUNT (AUTO) 6.1 K/uL (4.8-10.8)
[2023-07-18 05:04] LABS: CREATININE 1.1 mg/dL (0.5-1.5); MAGNESIUM 1.5 mg/dL (1.80-2.40); PHOSPHORUS 2.2 mg/dL (2.5-4.9); POTASSIUM 3.5 mmol/L (3.5-5.1)
[2023-07-18] MEDS: MAGNESIUM 2GM PREMIX 50ML 50 ML IV PRN (05:19)
[2023-07-18] MEDS: INSULIN HUMULIN R 100 UNIT/ML 3ML SQ SCH ×2 (05:32→13:05)
[2023-07-18] MEDS ORDERED: MAGNESIUM 2GM PREMIX 50ML 50 ML IV SCH (08:00)
[2023-07-18] MEDS: Rosuvastatin Calcium 40 MG PO SCH (09:00)
[2023-07-18] MEDS: Escitalopram Oxalate 20 MG PO SCH (09:00)
[2023-07-18] MEDS: INSULIN NPH 100 UNIT/ML 3ML SQ SCH (10:43)
[2023-07-18] MEDS: POLYETHYLENE GLYCOL 3350 17 GM POWD.PACK PO SCH (10:46)
[2023-07-18] MEDS: ASPIRIN 81 MG EC TAB PO SCH (10:47)
[2023-07-18] MEDS: FERROUS SULFATE 325 MG TABLET.DR PO SCH (10:47)
[2023-07-18] MEDS: FAMOTIDINE 20MG TAB PO SCH (10:47)
[2023-07-18] MEDS: POTASSIUM CHLORIDE 10% ELIXIR 20 MEQ/15 ML UDCUP PO PRN (10:47)
[2023-07-18] MEDS: LOSARTAN 100 MG TABLET PO SCH (10:47)
[2023-07-18] MEDS: CLOPIDOGREL 75MG TAB PO SCH (10:47)
[2023-07-18] MEDS: Vitamin B Complex/Vit C/Folic Acid PO SCH (10:47)
[2023-07-18] MEDS: DOCUSATE NA 100MG/10ML UDCUP PO SCH (10:47)
[2023-07-18] MEDS: AMLODIPINE 5 MG TAB PO SCH (10:48)
[2023-07-18] MEDS: METOPROLOL TARTRATE 50 MG TAB PO SCH (10:48)
[2023-07-18] MEDS: MUPIROCIN OINTMENT 22 GM TUBE TP SCH (10:48)
[2023-07-18] MEDS: AZITHROMYCIN 500MG+NS 250ML 250 ML IVPB SCH (10:48)
[2023-07-18] MEDS: BALSAM PERU/CASTOR OIL 60 GM TUBE TP SCH (10:49)
== END 2023-07-18 16:45 | disposition home or self-care (01) | DRG 871 ==
LOC: EDH 00:33 → EDHIP 05:03 → 2BH 12:10 → 3AH 07-11 13:00
PROVIDERS: ADMIT Hospitalist; ATTEND Hospitalist
PROC: 0D20XUZ Change Feeding Device in Upper Intestinal Tract, External Approach (ICD-10-PCS; principal; 2023-07-18)
DX: A41.9 Sepsis, unspecified organism (principal); J69.0 Pneumonitis due to inhalation of food and vomit; J96.01 Acute respiratory failure with hypoxia; N17.9 Acute kidney failure, unspecified; E87.0 Hyperosmolality and hypernatremia; E44.0 Moderate protein-calorie malnutrition; K94.23 Gastrostomy malfunction; Z20.822 Contact with and (suspected) exposure to COVID-19; E11.65 Type 2 diabetes mellitus with hyperglycemia; N18.30 Chronic kidney disease, stage 3 unspecified; R13.10 Dysphagia, unspecified; I12.9 Hypertensive chronic kidney disease with stage 1 through stage 4 chronic kidney disease, or unspecified chronic kidney disease; D64.9 Anemia, unspecified; E66.9 Obesity, unspecified; L89.152 Pressure ulcer of sacral region, stage 2; E11.22 Type 2 diabetes mellitus with diabetic chronic kidney disease; E78.00 Pure hypercholesterolemia, unspecified; E86.0 Dehydration; Z79.899 Other long term (current) drug therapy; Z74.01 Bed confinement status; Z77.22 Contact with and (suspected) exposure to environmental tobacco smoke (acute) (chronic); Z82.49 Family history of ischemic heart disease and other diseases of the circulatory system; Z82.5 Family history of asthma and other chronic lower respiratory diseases; Z83.3 Family history of diabetes mellitus; Z68.32 Body mass index [BMI] 32.0-32.9, adult; Z86.73 Personal history of transient ischemic attack (TIA), and cerebral infarction without residual deficits; Z88.5 Allergy status to narcotic agent; Z88.8 Allergy status to other drugs, medicaments and biological substances; Y83.8 Other surgical procedures as the cause of abnormal reaction of the patient, or of later complication, without mention of misadventure at the time of the procedure; Y73.2 Prosthetic and other implants, materials and accessory gastroenterology and urology devices associated with adverse incidents; Z79.84 Long term (current) use of oral hypoglycemic drugs
CPT/HCPCS: 36415; 36600; 43762; 71045; 71250; 74018; 80048; 80053; 82010; 82550; 82803; 82948; 83036; 83605; 83735; 83880; 83930; 84100; 84145; 84443; 84484; 85025; 85610; 85730; 86140; 86738; 87040; 87635; 87804; 87880; 92610; 93005; 94640; 94664; C9803; G0378; J0456; J0696; J1170; J1644; J1815; J3475; J3490; J7030; J7070; Q9963; Q9967; A4600

== ENCOUNTER 2023-07-30 16:57 | Emergency (ER) | payer OTHER ==
[~2023-07-30] VITALS: Ht 152.4 cm; Wt 74.8 kg
[~2023-07-30 16:57] MED LIST changes: +AMLO5TAB4 PO; +BENZ-226 PO; +BENZ-39 PO; -FERR325T29 PO; -FOLI1TAB85 PO; +LEVO750T39 PO; -MUPI22O TP; -SULF1TAB42 PO
[2023-07-30 17:48] LABS: BASOPHILS # (AUTO) 0.04 K/uL (0.00-0.20); BASOPHILS % (AUTO) 0.8 % (0.0-5.0); EOSINOPHILS # (AUTO) 0.11 K/uL (0.00-0.70); EOSINOPHILS % (AUTO) 2.1 % (0.0-8.0); HEMATOCRIT 35.7 % (36-48); IMMATURE GRANULOCYTE ABSOLUTE 0.01 K/uL (0-1); LYMPHOCYTES # (AUTO) 1.3 K/uL (1.0-4.8); LYMPHOCYTES % (AUTO) 25.1 % (21.0-51.0); MEAN CORPUSCULAR HEMOGLOBIN 30.1 pg (27.0-33.0); MEAN CORPUSCULAR HGB CONC 32.5 g/dL (32.0-36.0); MEAN CORPUSCULAR VOLUME 92.5 fL (79-99); MONOCYTES # (AUTO) 0.7 K/uL (0.1-1.0); MONOCYTES % (AUTO) 13.2 % (3.0-13.0); NEUTROPHILS # (AUTO) 3.1 K/uL (1.8-7.7); NEUTROPHILS % (AUTO) 58.6 % (40.0-77.0); PLATELET COUNT (AUTO) 231 K/uL (130-400); RED BLOOD CELL COUNT(AUTO) 3.86 MIL/uL (4.00-5.50); RED CELL DISTRIBUTION WIDTH 14.3 % (11.0-15.5); WHITE BLOOD COUNT (AUTO) 5.3 K/uL (4.8-10.8)
[2023-07-30 17:56] LABS: CREATININE 1.6 mg/dL (0.5-1.5); POTASSIUM 3.6 mmol/L (3.5-5.1)
[2023-07-30 18:00] LABS: ALBUMIN 2.9 g/dL (3.5-5.0); BILIRUBIN,TOTAL 0.5 mg/dL (0.2-1.0); TOTAL PROTEIN, SERUM 8.1 g/dL (6.0-8.3)
[2023-07-30] MEDS ORDERED: 0.9%NACL 1000ML 1,000 ML IV ONE (21:00)
[2023-07-30 22:00] VITALS: BP 128/54; PULSE 68; RESP 18; O2SAT 98
[2023-07-30 23:07] LABS: APPEARANCE,URINE CLEAR (CLEAR); BILIRUBIN,URINE NEGATIVE (NEGATIVE); COLOR,URINE COLORLESS (YELLOW); GLUCOSE, URINE (UA) NEGATIVE (NEGATIVE); KETONES,URINE NEGATIVE (NEGATIVE); LEUKOCYTE ESTERASE ,URINE 25 Leu/uL (NEGATIVE); NITRATE,URINE NEGATIVE (NEGATIVE); OCCULT BLOOD,URINE NEGATIVE (NEGATIVE); PROTEIN,URINE 20 mg/dL (NEGATIVE); UROBILINOGEN,URINE 0.2 mg/dL (0.2-1.0)
[2023-07-30 23:17] LABS: ADD UA MICROSCOPIC YES; BACTERIA,URINE Rare /HPF (None Seen); RBC,URINE 0-1 /HPF (0-1)
[2023-07-30 23:18] LABS: SQUAMOUS EPITHELIAL CELL,UR Few /HPF (0-2)
== END 2023-07-30 23:20 | disposition home or self-care (01) ==
LOC: EDH 16:57
DX: R53.1 Weakness (principal); E11.9 Type 2 diabetes mellitus without complications; E78.00 Pure hypercholesterolemia, unspecified; I10 Essential (primary) hypertension; Z79.02 Long term (current) use of antithrombotics/antiplatelets; Z79.82 Long term (current) use of aspirin; Z79.899 Other long term (current) drug therapy; Z88.5 Allergy status to narcotic agent; Z86.73 Personal history of transient ischemic attack (TIA), and cerebral infarction without residual deficits
CPT/HCPCS: 99283; 96360; 84484; 80053; 85025; 81001; 36415; J7030

== ENCOUNTER → 2023-07-31 | Outpatient (CLI) | payer OTHER | END | disposition home or self-care (01) | LOC: RAH 10:00 | PROVIDERS: ATTEND Internal Medicine | DX: J69.0 Pneumonitis due to inhalation of food and vomit (principal); R13.10 Dysphagia, unspecified; Z86.73 Personal history of transient ischemic attack (TIA), and cerebral infarction without residual deficits | CPT/HCPCS: 74230; 92611 ==

== ENCOUNTER 2023-09-06 22:40 | Emergency (ER) | payer OTHER ==
[~2023-09-06] VITALS: Ht 152.4 cm; Wt 113.4 kg
[2023-09-06] MEDS ORDERED: DIATR MEGLU/DIATRIZOATE SODIUM 30 ML BOTTLE ONE (23:31)
[2023-09-07 05:28] VITALS: BP 127/72; PULSE 72; RESP 16; O2SAT 97
== END 2023-09-07 05:30 | disposition home or self-care (01) ==
LOC: EDH 22:40
DX: K94.23 Gastrostomy malfunction (principal); E11.9 Type 2 diabetes mellitus without complications; E78.00 Pure hypercholesterolemia, unspecified; I10 Essential (primary) hypertension; Z79.02 Long term (current) use of antithrombotics/antiplatelets; Z79.82 Long term (current) use of aspirin; Z79.899 Other long term (current) drug therapy; Z86.73 Personal history of transient ischemic attack (TIA), and cerebral infarction without residual deficits; Z88.5 Allergy status to narcotic agent; Y83.8 Other surgical procedures as the cause of abnormal reaction of the patient, or of later complication, without mention of misadventure at the time of the procedure
CPT/HCPCS: 99284; 74018; 74176; Q9963